=== PATIENT | male | born 1950 | race Caucasian/White ===

== ENCOUNTER 2017-02-28 22:04 | Emergency (ER) | payer OTHER, MEDICARE ==
[~2017-02-28] VITALS: Ht 170.2 cm; Wt 62.7 kg
[2017-02-28 22:07] VITALS: BP 93/54; TEMP 98
[2017-02-28] MEDS ORDERED: PRINIVIL40 MG PO (22:12)
[2017-02-28 23:40] VITALS: PULSE 92
== END 2017-02-28 23:40 | disposition home or self-care (01) ==
LOC: COL.ER 22:04
DX: S00.83XA Contusion of other part of head, initial encounter (principal); S00.81XA Abrasion of other part of head, initial encounter; S51.811A Laceration without foreign body of right forearm, initial encounter; W01.10XA Fall on same level from slipping, tripping and stumbling with subsequent striking against unspecified object, initial encounter; Z72.89 Other problems related to lifestyle; I10 Essential (primary) hypertension; F17.200 Nicotine dependence, unspecified, uncomplicated

== ENCOUNTER 2017-03-20 14:37 | Inpatient (IN) | payer MEDICARE ==
[2017-03-20] VITALS (400 sets, daily range): BP systolic 80–81; BP diastolic 49–61; PULSE 70–115; TEMP 97.2–97.9; O2SAT 88–99
[~2017-03-20] VITALS: Ht 170.2 cm; Wt 61.2 kg
[~2017-03-20 14:37] MED LIST: PRINIVIL40 MG PO
[2017-03-20 15:38] LABS: BASO # 0.1 (0.0-0.2); BASO % 0.9 % (0.0-2.0); GRAN # 4.1 (1.4-6.5); GRAN % 71.6 % (42.2-75.2); LYMPH # 1.4 (1.2-3.4); LYMPH % 24.4 % (20.0-51.0); MEAN CELL VOLUME 94 fl (80.0-100.0); MEAN CORPUSCULAR HGB CONC 34 g/dl (33.0-37.0); MEAN PLATELET VOLUME 9.7 fl (7.4-10.4); MONO # 0.2 (0.1-0.6); MONO % 2.9 % (1.7-9.3); PLATELET COUNT 206 K/mm3 (130-400); RED BLOOD COUNT 3.51 M/mm3 (4.20-5.60); REDCELL DISTRIBUTION WIDTH-CV 13.2 % (11.5-14.5); WHITE BLOOD COUNT 5.8 K/mm3 (4.8-10.8)
[2017-03-20 15:40] LABS: HEMATOCRIT 33.1 % (42.0-52.0); HEMOGLOBIN 11.4 g/dl (13.5-18.0); MEAN CORPUSCULAR HEMOGLOBIN 32 pg (27.0-31.0)
[2017-03-20 15:52] LABS: ADJUSTED CALCIUM 9.2 mg/dL (8.4-10.2); ALBUMIN 4.3 gm/dL (3.5-5.0); BILIRUBIN,TOTAL 0.6 mg/dL (0.0-1.0); CALCIUM 9.4 mg/dL (8.4-10.2); CREATININE, serum 3.5 mg/dL (0.66-1.25); PHOSPHOROUS 6.5 mg/dL (2.5-4.5); POTASSIUM 5.6 mmol/L (3.4-5.0); TOTAL PROTEIN 7.2 gm/dL (6.4-8.2)
[2017-03-20 16:08] LABS: INR 0.8 (0.8-3.0); PROTHROMBIN TIME 9.2 SECONDS (9.7-12.8)
[2017-03-20 16:10] LABS: PARTIAL THROMBOPLASTIN TIME 27.4 SECONDS (26.0-37.0)
[2017-03-20 16:30] LABS: SQUAMOUS EPITHELIAL 0-2 /hpf; URINE BACTERIA Rare /hpf; URINE RBC 0-2 /hpf; URINE WBC 0-2 /hpf
[2017-03-20 16:33] LABS: PH 6 (5-8); URINE APPEARANCE Clear; URINE BILIRUBIN Negative (NEGATIVE); URINE BLOOD Negative (NEGATIVE); URINE COLOR Yellow; URINE GLUCOSE Negative (NEGATIVE); URINE KETONE Negative (NEGATIVE); URINE UROBILINOGEN Negative (NEGATIVE)
[2017-03-20] MEDS ORDERED: PRILOTC (17:41)
[2017-03-20] MEDS ORDERED: ONE DAILY1 TA1 PO (17:41)
[2017-03-20 21:35] LABS: CALCIUM 8.7 mg/dL (8.4-10.2); CREATININE, serum 3.24 mg/dL (0.66-1.25); POTASSIUM 5.7 mmol/L (3.4-5.0)
[2017-03-20 23:11] LABS: CALCIUM 8.4 mg/dL (8.4-10.2); CREATININE, serum 3.05 mg/dL (0.66-1.25); POTASSIUM 5.2 mmol/L (3.4-5.0)
[2017-03-21] VITALS (681 sets, daily range): BP systolic 90–133; BP diastolic 58–103; PULSE 73–135; TEMP 97–99; O2SAT 87–99
[2017-03-21 05:28] LABS: MEAN CELL VOLUME 92 fl (80.0-100.0); MEAN CORPUSCULAR HGB CONC 36 g/dl (33.0-37.0); MEAN PLATELET VOLUME 9.7 fl (7.4-10.4); PLATELET COUNT 135 K/mm3 (130-400); RED BLOOD COUNT 2.85 M/mm3 (4.20-5.60); WHITE BLOOD COUNT 5.7 K/mm3 (4.8-10.8)
[2017-03-21 05:31] LABS: HEMATOCRIT 26.1 % (42.0-52.0); HEMOGLOBIN 9.4 g/dl (13.5-18.0); MEAN CORPUSCULAR HEMOGLOBIN 33 pg (27.0-31.0)
[2017-03-21 05:33] LABS: INR 0.8 (0.8-3.0); PROTHROMBIN TIME 9.3 SECONDS (9.7-12.8)
[2017-03-21 05:43] LABS: ADJUSTED CALCIUM 8.3 mg/dL (8.4-10.2); ALBUMIN 3.2 gm/dL (3.5-5.0); BILIRUBIN,TOTAL 0.7 mg/dL (0.0-1.0); CALCIUM 7.7 mg/dL (8.4-10.2); CREATININE, serum 2.42 mg/dL (0.66-1.25); MAGNESIUM 2.3 mg/dL (1.6-2.3); POTASSIUM 5.3 mmol/L (3.4-5.0); TOTAL PROTEIN 5.7 gm/dL (6.4-8.2)
[2017-03-21 06:04] LABS: BAND 18 % (0-10); METAMYELOCYTE 2 % (0-0); NEUTROPHILS 75 % (42.0-75.2); TOTAL CELLS COUNTED 100
[2017-03-21 06:05] LABS: PLATELET ESTIMATE DECREASED (NORMAL)
[2017-03-21 06:06] LABS: TARGET CELLS 1+
[2017-03-21 06:07] LABS: SPHEROCYTE 2+
[2017-03-21 06:12] LABS: ADD PATHOLOGY DIFF REVIEW YES
[2017-03-21 08:41] LABS: PATHOLOGY DIFF REVIEW OK
[2017-03-22] VITALS (12 sets, daily range): BP systolic 104–133; BP diastolic 63–84; PULSE 64–122; TEMP 96.5–98.4
[2017-03-22 06:30] LABS: BASO % 0.2 % (0.0-2.0); GRAN # 4.9 (1.4-6.5); GRAN % 83.8 % (42.2-75.2); LYMPH # 0.7 (1.2-3.4); LYMPH % 11.6 % (20.0-51.0); MEAN CELL VOLUME 91 fl (80.0-100.0); MEAN CORPUSCULAR HGB CONC 36 g/dl (33.0-37.0); MEAN PLATELET VOLUME 10.7 fl (7.4-10.4); MONO # 0.2 (0.1-0.6); MONO % 3.4 % (1.7-9.3); PLATELET COUNT 109 K/mm3 (130-400); RED BLOOD COUNT 2.92 M/mm3 (4.20-5.60); REDCELL DISTRIBUTION WIDTH-CV 12.9 % (11.5-14.5); WHITE BLOOD COUNT 5.9 K/mm3 (4.8-10.8)
[2017-03-22 06:33] LABS: HEMATOCRIT 26.6 % (42.0-52.0); HEMOGLOBIN 9.5 g/dl (13.5-18.0); MEAN CORPUSCULAR HEMOGLOBIN 33 pg (27.0-31.0)
[2017-03-22 06:45] LABS: ADJUSTED CALCIUM 8.1 mg/dL (8.4-10.2); ALBUMIN 3.3 gm/dL (3.5-5.0); BILIRUBIN,TOTAL 0.7 mg/dL (0.0-1.0); CALCIUM 7.5 mg/dL (8.4-10.2); CREATININE, serum 1.32 mg/dL (0.66-1.25); MAGNESIUM 1.2 mg/dL (1.6-2.3); POTASSIUM 3.7 mmol/L (3.4-5.0)
[2017-03-23] VITALS (12 sets, daily range): BP systolic 85–138; BP diastolic 53–90; PULSE 52–117; TEMP 97.4–99.3
[2017-03-23 07:05] LABS: EOS % 0.3 % (0-4.0); GRAN # 4.5 (1.4-6.5); GRAN % 70.9 % (42.2-75.2); LYMPH # 1.5 (1.2-3.4); LYMPH % 23.8 % (20.0-51.0); MEAN CELL VOLUME 94 fl (80.0-100.0); MEAN CORPUSCULAR HGB CONC 35 g/dl (33.0-37.0); MEAN PLATELET VOLUME 11.2 fl (7.4-10.4); MONO # 0.3 (0.1-0.6); PLATELET COUNT 92 K/mm3 (130-400); RED BLOOD COUNT 3.15 M/mm3 (4.20-5.60); REDCELL DISTRIBUTION WIDTH-CV 13.4 % (11.5-14.5); WHITE BLOOD COUNT 6.3 K/mm3 (4.8-10.8)
[2017-03-23 07:06] LABS: HEMATOCRIT 29.5 % (42.0-52.0); HEMOGLOBIN 10.3 g/dl (13.5-18.0); MEAN CORPUSCULAR HEMOGLOBIN 33 pg (27.0-31.0)
[2017-03-23 07:29] LABS: CALCIUM 7.7 mg/dL (8.4-10.2); CREATININE, serum 0.96 mg/dL (0.66-1.25); MAGNESIUM 1.2 mg/dL (1.6-2.3); POTASSIUM 3.9 mmol/L (3.4-5.0)
[2017-03-24] VITALS (10 sets, daily range): BP systolic 94–149; BP diastolic 50–93; PULSE 71–105; TEMP 97–98.2
[2017-03-24 07:52] LABS: BASO % 0.2 % (0.0-2.0); EOS # 0.1 (0.0-0.7); EOS % 2.2 % (0-4.0); GRAN # 3.6 (1.4-6.5); GRAN % 65.7 % (42.2-75.2); LYMPH # 1.5 (1.2-3.4); LYMPH % 27.5 % (20.0-51.0); MEAN CELL VOLUME 94 fl (80.0-100.0); MEAN CORPUSCULAR HGB CONC 34 g/dl (33.0-37.0); MEAN PLATELET VOLUME 11.7 fl (7.4-10.4); MONO # 0.2 (0.1-0.6); PLATELET COUNT 69 K/mm3 (130-400); RED BLOOD COUNT 2.91 M/mm3 (4.20-5.60); REDCELL DISTRIBUTION WIDTH-CV 13.4 % (11.5-14.5); WHITE BLOOD COUNT 5.5 K/mm3 (4.8-10.8)
[2017-03-24 07:59] LABS: HEMATOCRIT 27.3 % (42.0-52.0); HEMOGLOBIN 9.4 g/dl (13.5-18.0); MEAN CORPUSCULAR HEMOGLOBIN 32 pg (27.0-31.0)
[2017-03-24 08:00] LABS: CALCIUM 7.8 mg/dL (8.4-10.2); CREATININE, serum 0.92 mg/dL (0.66-1.25); MAGNESIUM 1.4 mg/dL (1.6-2.3); POTASSIUM 3.9 mmol/L (3.4-5.0)
[2017-03-25] VITALS (10 sets, daily range): BP systolic 110–141; BP diastolic 70–99; PULSE 63–104; TEMP 97.4–98.6
[2017-03-25 07:03] LABS: BASO % 0.3 % (0.0-2.0); EOS # 0.3 (0.0-0.7); EOS % 4.3 % (0-4.0); GRAN # 3.6 (1.4-6.5); GRAN % 62.1 % (42.2-75.2); LYMPH # 1.6 (1.2-3.4); LYMPH % 26.9 % (20.0-51.0); MEAN CELL VOLUME 93 fl (80.0-100.0); MEAN CORPUSCULAR HGB CONC 35 g/dl (33.0-37.0); MONO # 0.4 (0.1-0.6); MONO % 6.2 % (1.7-9.3); PLATELET COUNT 80 K/mm3 (130-400); RED BLOOD COUNT 2.57 M/mm3 (4.20-5.60); REDCELL DISTRIBUTION WIDTH-CV 13.3 % (11.5-14.5); WHITE BLOOD COUNT 5.8 K/mm3 (4.8-10.8)
[2017-03-25 07:07] LABS: HEMATOCRIT 23.9 % (42.0-52.0); HEMOGLOBIN 8.3 g/dl (13.5-18.0); MEAN CORPUSCULAR HEMOGLOBIN 32 pg (27.0-31.0)
[2017-03-25 07:15] LABS: CALCIUM 8.2 mg/dL (8.4-10.2); CREATININE, serum 0.98 mg/dL (0.66-1.25); MAGNESIUM 1.5 mg/dL (1.6-2.3); POTASSIUM 3.6 mmol/L (3.4-5.0)
[2017-03-25] MEDS ORDERED: NICODERM C21 MG/PATC TD (12:39)
[2017-03-26] VITALS (7 sets, daily range): BP systolic 104–129; BP diastolic 64–93; PULSE 72–102; TEMP 97.6–98.9
[2017-03-26 06:36] LABS: BASO % 0.5 % (0.0-2.0); EOS # 0.3 (0.0-0.7); EOS % 4.7 % (0-4.0); GRAN # 3.1 (1.4-6.5); GRAN % 55.6 % (42.2-75.2); LYMPH # 1.6 (1.2-3.4); LYMPH % 28.8 % (20.0-51.0); MEAN CELL VOLUME 93 fl (80.0-100.0); MEAN CORPUSCULAR HGB CONC 35 g/dl (33.0-37.0); MEAN PLATELET VOLUME 10.9 fl (7.4-10.4); MONO # 0.6 (0.1-0.6); PLATELET COUNT 123 K/mm3 (130-400); RED BLOOD COUNT 2.63 M/mm3 (4.20-5.60); REDCELL DISTRIBUTION WIDTH-CV 13.7 % (11.5-14.5); WHITE BLOOD COUNT 5.5 K/mm3 (4.8-10.8)
[2017-03-26 06:40] LABS: HEMATOCRIT 24.4 % (42.0-52.0); HEMOGLOBIN 8.5 g/dl (13.5-18.0); MEAN CORPUSCULAR HEMOGLOBIN 32 pg (27.0-31.0)
[2017-03-26 06:48] LABS: CALCIUM 8.9 mg/dL (8.4-10.2); CREATININE, serum 0.98 mg/dL (0.66-1.25); POTASSIUM 3.6 mmol/L (3.4-5.0)
[2017-03-26 06:55] LABS: MAGNESIUM 0.8 mg/dL (1.6-2.3)
[2017-03-26 09:40] LABS: RETIC % 1.6 % (0.5-3.52)
[2017-03-26 10:03] LABS: TOTAL IRON BINDING CAPACITY 254 ug/dL (261-462)
[2017-03-27 06:22] VITALS: BP 109/77; PULSE 90; TEMP 98.2
[2017-03-27 08:02] LABS: CALCIUM 9.5 mg/dL (8.4-10.2); CREATININE, serum 1.09 mg/dL (0.66-1.25); MAGNESIUM 1.2 mg/dL (1.6-2.3); POTASSIUM 3.9 mmol/L (3.4-5.0)
[2017-03-27 12:04] VITALS: BP 102/80; PULSE 94; TEMP 98.5
[2017-03-27 17:04] VITALS: BP 111/73; PULSE 94; TEMP 99.1
[2017-03-27 21:41] VITALS: BP 115/77; PULSE 81; TEMP 98.3
[2017-03-28 01:04] VITALS: BP 119/87; PULSE 85; TEMP 98.6
[2017-03-28 02:38] VITALS: BP 98/58; PULSE 85; TEMP 98.2
[2017-03-28 07:24] VITALS: BP 117/81; PULSE 87; TEMP 97.9
[2017-03-28] MEDS ORDERED: FOLIC ACID 11 MG/TA1 PO (08:37)
[2017-03-28] MEDS ORDERED: MAG-OX 400400 MG/TAB PO (08:37)
[2017-03-28] MEDS ORDERED: THIAMINE 1100 MG/TAB PO (08:37)
[2017-03-28] MEDS ORDERED: RT ALBUTER2.5 MG/0.5 IH (08:38)
[2017-03-28] MEDS ORDERED: NORVASC 5MG5 MG/TAB PO (09:25)
[2017-03-28 09:46] LABS: CALCIUM 9.5 mg/dL (8.4-10.2); CREATININE, serum 1.15 mg/dL (0.66-1.25); MAGNESIUM 1.5 mg/dL (1.6-2.3); POTASSIUM 4.7 mmol/L (3.4-5.0)
[2017-03-28 10:04] VITALS: BP 117/81; PULSE 87; TEMP 97.9
[2017-03-28 11:25] VITALS: BP 110/75; PULSE 85; TEMP 98.1
== END 2017-03-28 15:54 | DRG 682 ==
LOC: COL.ER 14:37 → ICU 17:05 → MEDICAL 03-21 11:40
PROVIDERS: Emergency Medicine; Family Medicine; Internal Medicine; Nurse Practitioner Family; Physician Assistant
DX: N17.9 Acute kidney failure, unspecified (principal); E43 Unspecified severe protein-calorie malnutrition; F10.231 Alcohol dependence with withdrawal delirium; E87.2 Acidosis; F33.1 Major depressive disorder, recurrent, moderate; F10.229 Alcohol dependence with intoxication, unspecified; Y90.8 Blood alcohol level of 240 mg/100 ml or more; I10 Essential (primary) hypertension; F17.210 Nicotine dependence, cigarettes, uncomplicated; E87.5 Hyperkalemia; F43.12 Post-traumatic stress disorder, chronic; D69.6 Thrombocytopenia, unspecified; E83.42 Hypomagnesemia
CPT/HCPCS: 99223-AI; 99232-AI; 99233-AI; 99239; A4315; C9113; J1644; J2060; J2405; J2930; J3360; J3411; J3475; J7030; J7070

== ENCOUNTER → 2017-04-01 | Outpatient (REF) ==
[~2017-04-01] MED LIST changes: +FOLIC ACID 11 MG/TA1 PO; +KEPPRA 500MG500 MG PO; +MAG-OX 400400 MG/TAB PO; +NICODERM C21 MG/PATC TD; +NORVASC 5MG5 MG/TAB PO; +ONE DAILY1 TA1 PO; +PRILOTC; +RT ALBUTER2.5 MG/0.5 IH; +THIAMINE 1100 MG/TAB PO; +ZESTRIL40 MG PO
[2017-04-01 15:30] LABS: BASO # 0.1 (0.0-0.2); BASO % 0.9 % (0.0-2.0); EOS # 0.1 (0.0-0.7); EOS % 1.1 % (0-4.0); GRAN # 6.5 (1.4-6.5); GRAN % 72.5 % (42.2-75.2); LYMPH # 1.5 (1.2-3.4); LYMPH % 16.7 % (20.0-51.0); MEAN CELL VOLUME 98 fl (80.0-100.0); MEAN CORPUSCULAR HGB CONC 34 g/dl (33.0-37.0); MEAN PLATELET VOLUME 9.9 fl (7.4-10.4); MONO # 0.8 (0.1-0.6); MONO % 8.6 % (1.7-9.3); PLATELET COUNT 359 K/mm3 (130-400); RED BLOOD COUNT 2.63 M/mm3 (4.20-5.60); REDCELL DISTRIBUTION WIDTH-CV 14.6 % (11.5-14.5)
[2017-04-01 15:31] LABS: HEMATOCRIT 25.8 % (42.0-52.0); HEMOGLOBIN 8.7 g/dl (13.5-18.0); MEAN CORPUSCULAR HEMOGLOBIN 33 pg (27.0-31.0)
[2017-04-01 15:32] LABS: INR 1.1 (0.8-3.0); PROTHROMBIN TIME 11.9 SECONDS (9.7-12.8)
[2017-04-01 15:55] LABS: ALBUMIN 3.8 gm/dL (3.5-5.0); BILIRUBIN,TOTAL 0.7 mg/dL (0.0-1.0); CALCIUM 9.8 mg/dL (8.4-10.2); CREATININE, serum 1.41 mg/dL (0.66-1.25); POTASSIUM 5.3 mmol/L (3.4-5.0); TOTAL PROTEIN 6.8 gm/dL (6.4-8.2)
[2017-04-01 16:12] LABS: MAGNESIUM 0.9 mg/dL (1.6-2.3)
== END ==
LOC: ZLAB.STJ 15:25
PROVIDERS: Internal Medicine
DX: Z02.89 Encounter for other administrative examinations (principal)

== ENCOUNTER 2017-04-20 12:59 | Emergency (ER) | payer MEDICARE ==
[~2017-04-20] VITALS: Ht 167.6 cm; Wt 61.4 kg
[~2017-04-20 12:59] MED LIST changes: -KEPPRA 500MG500 MG PO; -ZESTRIL40 MG PO
[2017-04-20 13:06] VITALS: TEMP 96.8
[2017-04-20] MEDS ORDERED: ZESTRIL40 MG PO (13:32)
[2017-04-20 13:54] LABS: BASO % 0.3 % (0.0-2.0); EOS # 0.1 (0.0-0.7); EOS % 0.9 % (0-4.0); GRAN # 4.9 (1.4-6.5); GRAN % 73.3 % (42.2-75.2); LYMPH # 1.2 (1.2-3.4); LYMPH % 17.8 % (20.0-51.0); MEAN CELL VOLUME 94 fl (80.0-100.0); MEAN CORPUSCULAR HGB CONC 34 g/dl (33.0-37.0); MEAN PLATELET VOLUME 10.3 fl (7.4-10.4); MONO # 0.5 (0.1-0.6); MONO % 7.2 % (1.7-9.3); PLATELET COUNT 207 K/mm3 (130-400); WHITE BLOOD COUNT 6.6 K/mm3 (4.8-10.8)
[2017-04-20 13:56] LABS: HEMATOCRIT 25.5 % (42.0-52.0); HEMOGLOBIN 8.7 g/dl (13.5-18.0); MEAN CORPUSCULAR HEMOGLOBIN 32 pg (27.0-31.0)
[2017-04-20 14:01] LABS: PROTHROMBIN TIME 10.8 SECONDS (9.7-12.8)
[2017-04-20 14:08] LABS: ADJUSTED CALCIUM 8.3 mg/dL (8.4-10.2); ALANINE AMINOTRANSFERASE 29 U/L (21-72); ALBUMIN 3.7 gm/dL (3.5-5.0); ALKALINE PHOSPHATASE 68 U/L (50-136); ANION GAP 14 mmol/L (7-16); BILIRUBIN,TOTAL 0.4 mg/dL (0.0-1.0); BLOOD UREA NITROGEN 40 mg/dL (9-20); CALCIUM 8.1 mg/dL (8.4-10.2); CARBON DIOXIDE 19 mmol/L (22-30); CHLORIDE 95 mmol/L (98-107); CREATININE, serum 2.92 mg/dL (0.66-1.25); GLUCOSE 117 mg/dL (74-106); PHOSPHOROUS 4.1 mg/dL (2.5-4.5); POTASSIUM 4.5 mmol/L (3.4-5.0); SODIUM 128 mmol/L (137-145); TOTAL PROTEIN 6.1 gm/dL (6.4-8.2)
[2017-04-20 14:22] LABS: MAGNESIUM 0.8 mg/dL (1.6-2.3); TROPONIN-I < 0.012 ng/mL (0.000-0.034)
[2017-04-20 14:24] LABS: PROLACTIN 47.3 ng/mL (3.7-17.9)
[2017-04-20] MEDS ORDERED: KEPPRA 500MG500 MG PO (15:42)
[2017-04-20 16:00] LABS: CALCIUM 7.5 mg/dL (8.4-10.2); CREATININE, serum 2.56 mg/dL (0.66-1.25); MAGNESIUM 1.7 mg/dL (1.6-2.3); POTASSIUM 4.6 mmol/L (3.4-5.0)
[2017-04-20 17:34] VITALS: BP 115/67; PULSE 90
== END 2017-04-20 17:21 | disposition home or self-care (01) ==
LOC: COL.ER 12:59
PROVIDERS: Emergency Medicine
DX: S02.621A Fracture of subcondylar process of right mandible, initial encounter for closed fracture (principal); F10.129 Alcohol abuse with intoxication, unspecified; N19 Unspecified kidney failure; E83.42 Hypomagnesemia; I10 Essential (primary) hypertension; F17.210 Nicotine dependence, cigarettes, uncomplicated; Y90.6 Blood alcohol level of 120-199 mg/100 ml; X58.XXXA Exposure to other specified factors, initial encounter
CPT/HCPCS: J1953; J2270; J2405; J3411; J3475; J7030

== ENCOUNTER 2017-05-24 18:33 | Emergency (ER) | payer OTHER ==
[~2017-05-24] VITALS: Ht 167.6 cm; Wt 59.1 kg
[~2017-05-24 18:33] MED LIST changes: +KEPPRA 500MG500 MG PO; +ZESTRIL40 MG PO
[2017-05-24 19:20] LABS: ARTERIAL BLD GAS O2 SATURATION 95.8 % (92-100); ARTERIAL BLD GAS TCO2 CT 13.4; ARTERIAL BLOOD GAS BASE EXCESS -12.3 (-2-2); ARTERIAL BLOOD GAS HCO3 12.7 meq/L (22-26); ARTERIAL BLOOD GAS PO2 99.2 mmHg (80-100); ARTERIAL BLOOD GAS pH 7.33 (7.35-7.45); OXYHEMOGLOBIN 93.5 %
[2017-05-24 19:21] LABS: ALLEN TEST YES; ALLENS TEST RESULT PASS; ATS? YES
[2017-05-24 20:12] LABS: ADJUSTED CALCIUM 10.2 mg/dL (8.4-10.2); ALANINE AMINOTRANSFERASE 23 U/L (21-72); ALBUMIN 2.9 gm/dL (3.5-5.0); ALKALINE PHOSPHATASE 68 U/L (50-136); ANION GAP 14 mmol/L (7-16); BILIRUBIN,TOTAL 0.2 mg/dL (0.0-1.0); CALCIUM 9.3 mg/dL (8.4-10.2); CHLORIDE 104 mmol/L (98-107); GLUCOSE 103 mg/dL (74-106); POTASSIUM 5.1 mmol/L (3.4-5.0); SODIUM 130 mmol/L (137-145); TOTAL PROTEIN 5.4 gm/dL (6.4-8.2)
[2017-05-24 20:19] LABS: ALCOHOL(ethanol),MEDICAL < 10 mg/dL; BLOOD UREA NITROGEN 143 mg/dL (9-20)
[2017-05-24 20:21] LABS: CARBON DIOXIDE 12 mmol/L (22-30); CREATININE, serum 4.21 mg/dL (0.66-1.25)
[2017-05-24 21:01] LABS: COLLECTION METHOD CLEAN CATCH
[2017-05-24 21:14] LABS: MUCOUS Present /lpf; PH 5 (5-8); SQUAMOUS EPITHELIAL 0-2 /hpf; URINE APPEARANCE Hazy; URINE BACTERIA None Seen /hpf; URINE BILIRUBIN Negative (NEGATIVE); URINE BLOOD 2+ (NEGATIVE); URINE COLOR Yellow; URINE GLUCOSE Negative (NEGATIVE); URINE KETONE Trace (NEGATIVE); URINE LEUKOCYTE ESTERASE Negative (NEGATIVE); URINE PROTEIN(semi-quant) Negative (NEGATIVE); URINE RBC 0-2 /hpf; URINE UROBILINOGEN Negative (NEGATIVE); URINE WBC 0-2 /hpf
[2017-05-24 21:16] LABS: CALCIUM 8.6 mg/dL (8.4-10.2); CREATININE, serum 3.86 mg/dL (0.66-1.25); POTASSIUM 4.8 mmol/L (3.4-5.0)
[2017-05-24 21:18] LABS: AMPHETAMINE URINE NEGATIVE; BARBITURATES URINE NEGATIVE; BENZODIAZEPINES URINE NEGATIVE; BUPRENORPHINE URINE NEGATIVE; METHADONE URINE NEGATIVE; OPIATES URINE NEGATIVE; OXYCODONE URINE NEGATIVE; PHENCYCLIDINE URINE NEGATIVE; PROPOXYPHENE URINE NEGATIVE; THC CANNABINOIDS URINE NEGATIVE; TRICYCLIC ANTIDEPRESS URINE NEGATIVE
[2017-05-24 21:20] LABS: MEAN CELL VOLUME 99 fl (80.0-100.0); MEAN CORPUSCULAR HGB CONC 34 g/dl (33.0-37.0); MEAN PLATELET VOLUME 10.2 fl (7.4-10.4); PLATELET COUNT 242 K/mm3 (130-400); RED BLOOD COUNT 1.33 M/mm3 (4.20-5.60); WHITE BLOOD COUNT 9.3 K/mm3 (4.8-10.8)
[2017-05-24 21:21] LABS: ADD PATHOLOGY DIFF REVIEW NO; HEMATOCRIT 13.1 % (42.0-52.0); HEMOGLOBIN 4.5 g/dl (13.5-18.0); MEAN CORPUSCULAR HEMOGLOBIN 34 pg (27.0-31.0)
[2017-05-24 21:30] LABS: MAGNESIUM 1.4 mg/dL (1.6-2.3); PHOSPHOROUS 4.6 mg/dL (2.5-4.5)
[2017-05-24 22:06] LABS: BAND 1 % (0-10); LYMPHOCYTE 2 % (20.0-51.0); METAMYELOCYTE 1 % (0-0); NEUTROPHILS 96 % (42.0-75.2); PLATELET ESTIMATE NORMAL (NORMAL); TOTAL CELLS COUNTED 100
[2017-05-24 22:07] LABS: ROULEAUX 1+
[2017-05-24 23:05] VITALS: BP 78/46; PULSE 104; TEMP 97.9
[2017-05-24 23:19] LABS: TROPONIN-I 0.019 ng/mL (0.000-0.034)
== END 2017-05-24 23:33 | disposition short-term general hospital (02) ==
LOC: COL.ER 18:33
PROVIDERS: Emergency Medicine; Family Medicine; Nurse Practitioner Family
DX: A41.9 Sepsis, unspecified organism (principal); R41.0 Disorientation, unspecified; F03.90 Unspecified dementia, unspecified severity, without behavioral disturbance, psychotic disturbance, mood disturbance, and anxiety; J44.9 Chronic obstructive pulmonary disease, unspecified; F17.210 Nicotine dependence, cigarettes, uncomplicated; V89.2XXA Person injured in unspecified motor-vehicle accident, traffic, initial encounter; Y92.481 Parking lot as the place of occurrence of the external cause
CPT/HCPCS: J0692; J3370; J7030; J7050; P9016

== ENCOUNTER 2017-06-03 14:27 | Inpatient (IN) | payer MEDICARE ==
[~2017-06-03] VITALS: Ht 167.6 cm; Wt 55.0 kg
[~2017-06-03 14:27] MED LIST changes: +ZESTRIL 5MG5 MG PO; -ZESTRIL40 MG PO
[2017-06-03 15:24] VITALS: BP 94/59; PULSE 94; TEMP 98.1
[2017-06-03] MEDS ORDERED: KEPPRA 500MG500 MG PO (19:20)
[2017-06-03] MEDS ORDERED: PRILOSEC 20MG20 MG PO (19:21)
[2017-06-03] MEDS ORDERED: HCTZ12.5TAB PO (19:22)
[2017-06-04 04:48] VITALS: BP 94/65; PULSE 69; TEMP 97
[2017-06-04 06:59] LABS: BASO # 0.1 (0.0-0.2); BASO % 1.5 % (0.0-2.0); EOS # 0.2 (0.0-0.7); EOS % 3.4 % (0-4.0); GRAN # 2.9 (1.4-6.5); GRAN % 54.4 % (42.2-75.2); LYMPH # 1.8 (1.2-3.4); LYMPH % 33.8 % (20.0-51.0); MEAN CELL VOLUME 95 fl (80.0-100.0); MEAN CORPUSCULAR HGB CONC 32 g/dl (33.0-37.0); MEAN PLATELET VOLUME 10.3 fl (7.4-10.4); MONO # 0.4 (0.1-0.6); MONO % 6.7 % (1.7-9.3); PLATELET COUNT 231 K/mm3 (130-400); WHITE BLOOD COUNT 5.3 K/mm3 (4.8-10.8)
[2017-06-04 07:03] LABS: HEMATOCRIT 24.8 % (42.0-52.0); HEMOGLOBIN 7.9 g/dl (13.5-18.0); MEAN CORPUSCULAR HEMOGLOBIN 30 pg (27.0-31.0)
[2017-06-04 07:36] LABS: CALCIUM 8.5 mg/dL (8.4-10.2); CREATININE, serum 1.11 mg/dL (0.66-1.25); MAGNESIUM 1.1 mg/dL (1.6-2.3); POTASSIUM 3.8 mmol/L (3.4-5.0)
[2017-06-04 15:57] VITALS: BP 107/71; PULSE 78; TEMP 97.8
[2017-06-05 05:38] VITALS: BP 99/70; PULSE 80; TEMP 97.5
[2017-06-05 15:45] VITALS: BP 87/50; PULSE 67; TEMP 97.9
[2017-06-06 04:49] VITALS: BP 89/69; PULSE 85; TEMP 98.6
[2017-06-06 05:54] LABS: HEMATOCRIT 25.4 % (42.0-52.0)
[2017-06-06 16:40] VITALS: BP 97/63; PULSE 78; TEMP 98.5
[2017-06-07 05:14] VITALS: BP 92/65; PULSE 73; TEMP 98.2
[2017-06-07 16:14] VITALS: BP 83/57; PULSE 87; TEMP 98.1
[2017-06-07 16:20] VITALS: BP 87/55
[2017-06-08 04:07] VITALS: BP 106/72; PULSE 71; TEMP 97.7
[2017-06-08 08:33] LABS: CALCIUM 8.9 mg/dL (8.4-10.2); CREATININE, serum 1.06 mg/dL (0.66-1.25); MAGNESIUM 1.1 mg/dL (1.6-2.3); POTASSIUM 4.2 mmol/L (3.4-5.0)
[2017-06-08 18:06] VITALS: BP 92/62; PULSE 81; TEMP 98.2
[2017-06-09 05:45] VITALS: BP 102/64; PULSE 80; TEMP 97.9
[2017-06-09] MEDS ORDERED: FERROUS SU325 MG/TAB PO (14:25)
[2017-06-09] MEDS ORDERED: MAG-OX 400400 MG/TAB PO (14:26)
[2017-06-09] MEDS ORDERED: KEPPRA 500MG500 MG PO (14:26)
[2017-06-09] MEDS ORDERED: FOLIC ACID 11 MG/TA1 PO (14:26)
[2017-06-09] MEDS ORDERED: THIAMINE 1100 MG/TAB PO (14:27)
[2017-06-09] MEDS ORDERED: PRILOSEC 20MG20 MG PO (14:28)
== END 2017-06-09 17:55 | disposition home or self-care (01) | DRG 91 ==
PROVIDERS: Internal Medicine
DX: G72.81 Critical illness myopathy (principal); R57.8 Other shock; K26.4 Chronic or unspecified duodenal ulcer with hemorrhage; E87.2 Acidosis; N17.9 Acute kidney failure, unspecified; E46 Unspecified protein-calorie malnutrition; E87.1 Hypo-osmolality and hyponatremia; Z68.1 Body mass index [BMI] 19.9 or less, adult; I10 Essential (primary) hypertension; F10.10 Alcohol abuse, uncomplicated; E83.42 Hypomagnesemia
CPT/HCPCS: 99222-AI; 99232-AI; 99239

== ENCOUNTER 2018-01-30 15:36 | Emergency (ER) | payer OTHER ==
[~2018-01-30] VITALS: Ht 167.6 cm; Wt 61.4 kg
[~2018-01-30 15:36] MED LIST changes: +FERROUS SU325 MG/TAB PO; +HCTZ12.5TAB PO; +PRILOSEC 20MG20 MG PO
[2018-01-30 15:38] VITALS: TEMP 98.1
[2018-01-30 16:07] LABS: BASO % 0.1 % (0.0-2.0); EOS # 0.1 (0.0-0.7); EOS % 0.8 % (0-4.0); GRAN % 55.8 % (42.2-75.2); LYMPH # 2.4 (1.2-3.4); LYMPH % 33.7 % (20.0-51.0); MEAN CELL VOLUME 85 fl (80.0-100.0); MEAN CORPUSCULAR HEMOGLOBIN 32 pg (27.0-31.0); MEAN CORPUSCULAR HGB CONC 37 g/dl (33.0-37.0); MONO # 0.7 (0.1-0.6); MONO % 9.3 % (1.7-9.3); PLATELET COUNT 217 K/mm3 (130-400); RED BLOOD COUNT 3.14 M/mm3 (4.20-5.60); REDCELL DISTRIBUTION WIDTH-CV 13.2 % (11.5-14.5)
[2018-01-30 16:15] LABS: HEMATOCRIT 26.8 % (42.0-52.0)
[2018-01-30 16:25] LABS: ALKALINE PHOSPHATASE 95 U/L (50-136); AST,SGOT 41 U/L (15-37); BILIRUBIN,TOTAL 0.3 mg/dL (0.0-1.0); BLOOD UREA NITROGEN 49 mg/dL (9-20); C-REACTIVE PROTEIN 0.7 mg/dL (0.0-0.9); CARBON DIOXIDE 24 mmol/L (22-30); CREATININE, serum 2.03 mg/dL (0.66-1.25); GLUCOSE 124 mg/dL (74-106); TOTAL PROTEIN 6.7 gm/dL (6.4-8.2)
[2018-01-30 16:31] LABS: CHLORIDE 71 mmol/L (98-107)
[2018-01-30 16:36] LABS: TROPONIN-I < 0.012 ng/mL (0.000-0.034)
[2018-01-30 16:39] LABS: PROLACTIN 28.4 ng/mL (3.7-17.9)
[2018-01-30 16:41] LABS: ALANINE AMINOTRANSFERASE 30 U/L (21-72); ALCOHOL(ethanol),MEDICAL 135 mg/dL; CALCIUM 8.7 mg/dL (8.4-10.2); CREATINE KINASE 229 U/L (55-170); LIPASE 153 U/L (23-300); MAGNESIUM 2.2 mg/dL (1.6-2.3); PHOSPHOROUS 2.7 mg/dL (2.5-4.5); POTASSIUM 3.8 mmol/L (3.4-5.0)
[2018-01-30 16:42] LABS: ANION GAP 16 mmol/L (7-16)
[2018-01-30 16:43] LABS: SODIUM 111 mmol/L (137-145)
[2018-01-30 16:52] LABS: COLLECTION METHOD CLEAN CATCH
[2018-01-30 16:59] LABS: PH 6 (5-8); SQUAMOUS EPITHELIAL None Seen /hpf; URINE APPEARANCE Clear; URINE BACTERIA None Seen /hpf; URINE BILIRUBIN Negative (NEGATIVE); URINE BLOOD Negative (NEGATIVE); URINE COLOR Yellow; URINE GLUCOSE Negative (NEGATIVE); URINE KETONE Negative (NEGATIVE); URINE LEUKOCYTE ESTERASE Negative (NEGATIVE); URINE NITRATE Negative (NEGATIVE); URINE PROTEIN(semi-quant) Negative (NEGATIVE); URINE RBC 0-2 /hpf; URINE UROBILINOGEN Negative (NEGATIVE)
[2018-01-30] MEDS ORDERED: MULTIPLE VITAMI1 CAP PO (17:15)
[2018-01-30] MEDS ORDERED: PRINIVIL40 MG PO (17:16)
[2018-01-30] MEDS ORDERED: ULTRAM 50MG TAB50 MG PO (17:16)
[2018-01-30 17:21] LABS: BASO % 0.3 % (0.0-2.0); EOS % 0.5 % (0-4.0); GRAN # 4.2 (1.4-6.5); GRAN % 69.2 % (42.2-75.2); LYMPH # 1.1 (1.2-3.4); MEAN CELL VOLUME 87 fl (80.0-100.0); MEAN CORPUSCULAR HGB CONC 36 g/dl (33.0-37.0); MEAN PLATELET VOLUME 9.2 fl (7.4-10.4); MONO # 0.7 (0.1-0.6); MONO % 11.7 % (1.7-9.3); PLATELET COUNT 161 K/mm3 (130-400); RED BLOOD COUNT 2.69 M/mm3 (4.20-5.60); REDCELL DISTRIBUTION WIDTH-CV 13.2 % (11.5-14.5)
[2018-01-30 17:22] LABS: HEMATOCRIT 23.5 % (42.0-52.0); HEMOGLOBIN 8.4 g/dl (13.5-18.0); MEAN CORPUSCULAR HEMOGLOBIN 31 pg (27.0-31.0)
[2018-01-30 17:36] LABS: CALCIUM 7.6 mg/dL (8.4-10.2); CREATININE, serum 1.8 mg/dL (0.66-1.25); POTASSIUM 3.9 mmol/L (3.4-5.0)
[2018-01-30 19:00] VITALS: BP 91/64; PULSE 64
== END 2018-01-30 19:14 | disposition short-term general hospital (02) ==
LOC: COL.ER 15:36
PROVIDERS: Emergency Medicine
DX: N19 Unspecified kidney failure (principal); R55 Syncope and collapse; I10 Essential (primary) hypertension; D64.9 Anemia, unspecified; E87.1 Hypo-osmolality and hyponatremia; I95.9 Hypotension, unspecified; F17.210 Nicotine dependence, cigarettes, uncomplicated; F10.10 Alcohol abuse, uncomplicated
CPT/HCPCS: J2060; J7030

== ENCOUNTER 2018-02-10 10:09 | Day surgery (SDC) | payer OTHER ==
[~2018-02-10] VITALS: Ht 167.6 cm; Wt 52.7 kg
[~2018-02-10 10:09] MED LIST changes: +MULTIPLE VITAMI1 CAP PO; +ULTRAM 50MG TAB50 MG PO
[2018-02-10 11:45] LABS: COLLECTION METHOD CLEAN CATCH
[2018-02-10 11:55] LABS: BASO # 0.1 (0.0-0.2); BASO % 1.4 % (0.0-2.0); EOS % 0.3 % (0-4.0); GRAN # 4.3 (1.4-6.5); GRAN % 59.7 % (42.2-75.2); HEMOGLOBIN 10.3 g/dl (13.5-18.0); LYMPH # 2.2 (1.2-3.4); MEAN CELL VOLUME 94 fl (80.0-100.0); MEAN CORPUSCULAR HEMOGLOBIN 32 pg (27.0-31.0); MEAN CORPUSCULAR HGB CONC 34 g/dl (33.0-37.0); MEAN PLATELET VOLUME 8.4 fl (7.4-10.4); MONO # 0.5 (0.1-0.6); MONO % 7.3 % (1.7-9.3); PLATELET COUNT 421 K/mm3 (130-400); RED BLOOD COUNT 3.25 M/mm3 (4.20-5.60); REDCELL DISTRIBUTION WIDTH-CV 15.6 % (11.5-14.5)
[2018-02-10 11:56] LABS: MUCOUS Present /lpf; PH 5 (5-8); SQUAMOUS EPITHELIAL None Seen /hpf; URINE APPEARANCE Clear; URINE BACTERIA Rare /hpf; URINE BILIRUBIN Negative (NEGATIVE); URINE BLOOD Negative (NEGATIVE); URINE COLOR Yellow; URINE GLUCOSE Negative (NEGATIVE); URINE KETONE Negative (NEGATIVE); URINE LEUKOCYTE ESTERASE Negative (NEGATIVE); URINE NITRATE Negative (NEGATIVE); URINE PROTEIN(semi-quant) Negative (NEGATIVE); URINE RBC 0-2 /hpf; URINE UROBILINOGEN Negative (NEGATIVE)
[2018-02-10 11:56] LABS: HEMATOCRIT 30.6 % (42.0-52.0)
[2018-02-10 11:57] LABS: INR 0.9 (0.8-3.0); PROTHROMBIN TIME 10.1 SECONDS (9.7-12.8)
[2018-02-10 12:00] LABS: PARTIAL THROMBOPLASTIN TIME 33.7 SECONDS (26.0-37.0)
[2018-02-10 12:16] LABS: ALBUMIN 4.6 gm/dL (3.5-5.0); BILIRUBIN,TOTAL 0.6 mg/dL (0.0-1.0); CALCIUM 9.8 mg/dL (8.4-10.2); CREATININE, serum 1.43 mg/dL (0.66-1.25); POTASSIUM 4.5 mmol/L (3.4-5.0); TOTAL PROTEIN 7.7 gm/dL (6.4-8.2)
[2018-02-10 18:00] VITALS: BP 141/74; PULSE 66; TEMP 98.5
[2018-02-10 18:15] VITALS: BP 121/84; PULSE 64
[2018-02-10 18:21] VITALS: TEMP 97.7
[2018-02-10 18:30] VITALS: BP 127/82; PULSE 62
[2018-02-10 19:15] VITALS: BP 131/87; PULSE 96
[2018-02-10 19:45] VITALS: BP 140/75; PULSE 63
== END 2018-02-10 20:30 | disposition home or self-care (01) ==
LOC: COL.ER 10:09 → EDBEDREQ 18:16 → SDCO 18:21 → SURG 19:14 → SDCO 20:30
PROVIDERS: Physician Assistant
DX: S31.020A Laceration with foreign body of lower back and pelvis without penetration into retroperitoneum, initial encounter (principal); W45.8XXA Other foreign body or object entering through skin, initial encounter; F10.129 Alcohol abuse with intoxication, unspecified; Y90.8 Blood alcohol level of 240 mg/100 ml or more; I10 Essential (primary) hypertension; F17.210 Nicotine dependence, cigarettes, uncomplicated
CPT/HCPCS: OP; J0690; J2060; J2250; J2704; J3010

== ENCOUNTER 2018-03-26 22:43 | Inpatient (IN) | payer MEDICARE ==
[~2018-03-26] VITALS: Ht 167.6 cm; Wt 49.8 kg
[2018-03-26 23:09] LABS: BASO % 0.6 % (0.0-2.0); GRAN # 2.9 (1.4-6.5); GRAN % 79.7 % (42.2-75.2); LYMPH # 0.3 (1.2-3.4); LYMPH % 7.2 % (20.0-51.0); MEAN CELL VOLUME 99 fl (80.0-100.0); MEAN CORPUSCULAR HGB CONC 34 g/dl (33.0-37.0); MONO # 0.4 (0.1-0.6); MONO % 12.2 % (1.7-9.3); PLATELET COUNT 244 K/mm3 (130-400); RED BLOOD COUNT 2.67 M/mm3 (4.20-5.60); REDCELL DISTRIBUTION WIDTH-CV 16.4 % (11.5-14.5)
[2018-03-26 23:10] LABS: HEMATOCRIT 26.3 % (42.0-52.0); HEMOGLOBIN 8.8 g/dl (13.5-18.0); MEAN CORPUSCULAR HEMOGLOBIN 33 pg (27.0-31.0)
[2018-03-26 23:15] LABS: INR 0.9 (0.8-3.0); PROTHROMBIN TIME 9.9 SECONDS (9.7-12.8)
[2018-03-26 23:17] LABS: PARTIAL THROMBOPLASTIN TIME 26.2 SECONDS (26.0-37.0)
[2018-03-26 23:20] LABS: ALBUMIN 3.2 gm/dL (3.5-5.0); BILIRUBIN,TOTAL 0.2 mg/dL (0.0-1.0); CREATININE, serum 1.57 mg/dL (0.66-1.25); POTASSIUM 4.3 mmol/L (3.4-5.0); TOTAL PROTEIN 5.7 gm/dL (6.4-8.2)
[2018-03-26 23:31] LABS: TROPONIN-I 0.02 ng/mL (0.000-0.034)
[2018-03-27] VITALS (64 sets, daily range): BP systolic 96–142; BP diastolic 57–87; PULSE 70–124; TEMP 97.1–99.1; O2SAT 82–100
[2018-03-27 00:39] LABS: COLLECTION METHOD CLEAN CATCH
[2018-03-27 00:47] LABS: MUCOUS Present /lpf; PH 5 (5-8); SQUAMOUS EPITHELIAL None Seen /hpf; URINE APPEARANCE Clear; URINE BACTERIA Rare /hpf; URINE BILIRUBIN Negative (NEGATIVE); URINE BLOOD 1+ (NEGATIVE); URINE COLOR Yellow; URINE GLUCOSE Negative (NEGATIVE); URINE KETONE 1+ (NEGATIVE); URINE LEUKOCYTE ESTERASE Negative (NEGATIVE); URINE NITRATE Negative (NEGATIVE); URINE PROTEIN(semi-quant) Negative (NEGATIVE); URINE RBC 0-2 /hpf; URINE UROBILINOGEN Negative (NEGATIVE)
[2018-03-27 04:11] LABS: TRICYCLIC ANTIDEPRESS URINE NEGATIVE
[2018-03-27 07:29] LABS: BASO % 0.8 % (0.0-2.0); GRAN # 1.5 (1.4-6.5); LYMPH # 0.5 (1.2-3.4); LYMPH % 19.4 % (20.0-51.0); MEAN CELL VOLUME 98 fl (80.0-100.0); MEAN CORPUSCULAR HGB CONC 34 g/dl (33.0-37.0); MEAN PLATELET VOLUME 9.2 fl (7.4-10.4); MONO # 0.4 (0.1-0.6); MONO % 17.8 % (1.7-9.3); PLATELET COUNT 194 K/mm3 (130-400); REDCELL DISTRIBUTION WIDTH-CV 16.5 % (11.5-14.5)
[2018-03-27 07:31] LABS: HEMATOCRIT 21.6 % (42.0-52.0); HEMOGLOBIN 7.3 g/dl (13.5-18.0); MEAN CORPUSCULAR HEMOGLOBIN 33 pg (27.0-31.0)
[2018-03-27 10:34] LABS: ALBUMIN 2.7 gm/dL (3.5-5.0); BILIRUBIN,TOTAL 0.1 mg/dL (0.0-1.0); CALCIUM 7.7 mg/dL (8.4-10.2); CREATININE, serum 1.27 mg/dL (0.66-1.25); POTASSIUM 4.6 mmol/L (3.4-5.0)
[2018-03-27 15:26] LABS: HEMATOCRIT 21.2 % (42.0-52.0)
[2018-03-27 23:10] LABS: HEMATOCRIT 17.8 % (42.0-52.0)
[2018-03-27 23:11] LABS: HEMOGLOBIN 6.4 g/dl (13.5-18.0)
[2018-03-28] VITALS (16 sets, daily range): BP systolic 102–132; BP diastolic 70–91; PULSE 73–103; TEMP 97.9–98.4
[2018-03-28 03:37] LABS: HEMATOCRIT 20.8 % (42.0-52.0); HEMOGLOBIN 7.2 g/dl (13.5-18.0)
[2018-03-28 03:47] LABS: CALCIUM 7.7 mg/dL (8.4-10.2); CREATININE, serum 1.09 mg/dL (0.66-1.25); MAGNESIUM 1.9 mg/dL (1.6-2.3)
[2018-03-28 10:24] LABS: HEMATOCRIT 22.1 % (42.0-52.0); HEMOGLOBIN 7.6 g/dl (13.5-18.0)
[2018-03-28 16:40] LABS: HEMATOCRIT 23.7 % (42.0-52.0); HEMOGLOBIN 8.1 g/dl (13.5-18.0)
[2018-03-28 22:38] LABS: HEMATOCRIT 21.1 % (42.0-52.0); HEMOGLOBIN 7.4 g/dl (13.5-18.0)
[2018-03-29] VITALS (9 sets, daily range): BP systolic 86–128; BP diastolic 58–81; PULSE 75–106; TEMP 97.4–98.8
[2018-03-29 04:32] LABS: BASO % 0.4 % (0.0-2.0); EOS # 0.1 (0.0-0.7); GRAN # 2.9 (1.4-6.5); GRAN % 58.5 % (42.2-75.2); LYMPH # 1.6 (1.2-3.4); LYMPH % 32.7 % (20.0-51.0); MEAN CORPUSCULAR HGB CONC 35 g/dl (33.0-37.0); MEAN PLATELET VOLUME 9.6 fl (7.4-10.4); MONO # 0.4 (0.1-0.6); MONO % 7.2 % (1.7-9.3); PLATELET COUNT 119 K/mm3 (130-400); RED BLOOD COUNT 2.34 M/mm3 (4.20-5.60); REDCELL DISTRIBUTION WIDTH-CV 17.5 % (11.5-14.5)
[2018-03-29 04:37] LABS: HEMATOCRIT 21.8 % (42.0-52.0); HEMOGLOBIN 7.6 g/dl (13.5-18.0); MEAN CELL VOLUME 93 fl (80.0-100.0); MEAN CORPUSCULAR HEMOGLOBIN 32 pg (27.0-31.0)
[2018-03-29 04:45] LABS: ALBUMIN 2.5 gm/dL (3.5-5.0); BILIRUBIN,TOTAL 0.4 mg/dL (0.0-1.0); CALCIUM 7.7 mg/dL (8.4-10.2); POTASSIUM 3.7 mmol/L (3.4-5.0); TOTAL PROTEIN 4.9 gm/dL (6.4-8.2)
[2018-03-29 10:35] LABS: HEMATOCRIT 22.6 % (42.0-52.0); HEMOGLOBIN 7.7 g/dl (13.5-18.0)
[2018-03-29 16:32] LABS: HEMATOCRIT 21.4 % (42.0-52.0); HEMOGLOBIN 7.4 g/dl (13.5-18.0)
[2018-03-29 22:01] LABS: HEMATOCRIT 21.1 % (42.0-52.0); HEMOGLOBIN 7.2 g/dl (13.5-18.0)
[2018-03-30] VITALS (14 sets, daily range): BP systolic 90–141; BP diastolic 54–90; PULSE 74–105; TEMP 18
[2018-03-30 04:24] LABS: BASO % 0.3 % (0.0-2.0); EOS # 0.1 (0.0-0.7); LYMPH # 2.3 (1.2-3.4); LYMPH % 39.6 % (20.0-51.0); MEAN CELL VOLUME 95 fl (80.0-100.0); MEAN CORPUSCULAR HGB CONC 34 g/dl (33.0-37.0); MEAN PLATELET VOLUME 10.3 fl (7.4-10.4); MONO # 0.4 (0.1-0.6); MONO % 6.8 % (1.7-9.3); PLATELET COUNT 127 K/mm3 (130-400); RED BLOOD COUNT 2.17 M/mm3 (4.20-5.60); REDCELL DISTRIBUTION WIDTH-CV 17.2 % (11.5-14.5)
[2018-03-30 04:33] LABS: CALCIUM 7.6 mg/dL (8.4-10.2); CREATININE, serum 1.07 mg/dL (0.66-1.25); POTASSIUM 3.5 mmol/L (3.4-5.0)
[2018-03-30 04:42] LABS: MAGNESIUM 0.8 mg/dL (1.6-2.3)
[2018-03-30 05:00] LABS: HEMATOCRIT 20.6 % (42.0-52.0); HEMOGLOBIN 6.9 g/dl (13.5-18.0); MEAN CORPUSCULAR HEMOGLOBIN 32 pg (27.0-31.0)
[2018-03-30] MEDS ORDERED: FERROUS GL325 MG/TAB PO (15:13)
[2018-03-30] MEDS ORDERED: NICODERM C21 MG/PATC TD (15:13)
[2018-03-30] MEDS ORDERED: PROTONIX 40MG T40 MG PO (15:14)
[2018-03-30] MEDS ORDERED: MAG-OX 400400 MG/TAB PO (15:14)
[2018-03-30] MEDS ORDERED: FOLIC ACID 11 MG/TA1 PO (15:14)
[2018-03-30] MEDS ORDERED: NATURE'S BLEND100 M2 PO (15:14)
[2018-03-30 15:40] LABS: HEMATOCRIT 24.9 % (42.0-52.0); HEMOGLOBIN 8.3 g/dl (13.5-18.0)
== END 2018-03-30 16:57 | disposition short-term general hospital (02) | DRG 378 ==
LOC: COL.ER 22:43 → ICU 03-27 01:43 → SURG 03-27 01:43 → ICU 03-27 01:44 → SURG 03-27 13:07
PROVIDERS: Emergency Medicine; Hospitalist; Internal Medicine; Internal Medicine Gastroenterology; Nurse Practitioner Family; Physician Assistant
PROC: 0HQ1XZZ Repair Face Skin, External Approach (ICD-10-PCS; 2018-03-26)
PROC: 0W3P8ZZ Control Bleeding in Gastrointestinal Tract, Via Natural or Artificial Opening Endoscopic (ICD-10-PCS; principal; 2018-03-28 10:30)
DX: K26.4 Chronic or unspecified duodenal ulcer with hemorrhage (principal); E87.1 Hypo-osmolality and hyponatremia; E87.2 Acidosis; E44.0 Moderate protein-calorie malnutrition; Z68.1 Body mass index [BMI] 19.9 or less, adult; D62 Acute posthemorrhagic anemia; F17.210 Nicotine dependence, cigarettes, uncomplicated; E83.42 Hypomagnesemia; S02.2XXA Fracture of nasal bones, initial encounter for closed fracture; W18.30XA Fall on same level, unspecified, initial encounter; F10.229 Alcohol dependence with intoxication, unspecified; Y90.7 Blood alcohol level of 200-239 mg/100 ml; S01.112A Laceration without foreign body of left eyelid and periocular area, initial encounter; I12.9 Hypertensive chronic kidney disease with stage 1 through stage 4 chronic kidney disease, or unspecified chronic kidney disease; N18.9 Chronic kidney disease, unspecified; I49.3 Ventricular premature depolarization
CPT/HCPCS: 99223-AI; 99231-AI; 99233-AI; 99239; C9113; J0171; J2060; J2405; J2704; J3411; J3475; J7030; P9016

== ENCOUNTER 2018-04-10 13:34 | Observation (INO) | payer MEDICARE, OTHER ==
[~2018-04-10] VITALS: Ht 167.6 cm; Wt 52.0 kg
[~2018-04-10 13:34] MED LIST changes: +FERROUS GL325 MG/TAB PO; +NATURE'S BLEND100 M2 PO; +PROTONIX 40MG T40 MG PO
[2018-04-10 14:24] LABS: COLLECTION METHOD CLEAN CATCH
[2018-04-10 14:30] LABS: BASO # 0.1 (0.0-0.2); BASO % 1.8 % (0.0-2.0); GRAN # 5.7 (1.4-6.5); GRAN % 72.9 % (42.2-75.2); HEMOGLOBIN 10.2 g/dl (13.5-18.0); LYMPH # 1.4 (1.2-3.4); LYMPH % 18.2 % (20.0-51.0); MEAN CELL VOLUME 96 fl (80.0-100.0); MEAN CORPUSCULAR HEMOGLOBIN 31 pg (27.0-31.0); MEAN CORPUSCULAR HGB CONC 32 g/dl (33.0-37.0); MEAN PLATELET VOLUME 8.6 fl (7.4-10.4); MONO # 0.5 (0.1-0.6); MONO % 6.8 % (1.7-9.3); PLATELET COUNT 594 K/mm3 (130-400); RED BLOOD COUNT 3.29 M/mm3 (4.20-5.60); REDCELL DISTRIBUTION WIDTH-CV 15.9 % (11.5-14.5)
[2018-04-10 14:37] LABS: HEMATOCRIT 31.6 % (42.0-52.0)
[2018-04-10 14:40] LABS: ALBUMIN 3.8 gm/dL (3.5-5.0); BILIRUBIN,TOTAL 0.3 mg/dL (0.0-1.0); CALCIUM 8.9 mg/dL (8.4-10.2); CREATININE, serum 1.24 mg/dL (0.66-1.25); POTASSIUM 4.6 mmol/L (3.4-5.0); TOTAL PROTEIN 6.8 gm/dL (6.4-8.2)
[2018-04-10 14:52] LABS: HYALINE CAST >12 /lpf; MUCOUS Present /lpf; PH 5 (5-8); SQUAMOUS EPITHELIAL 0-2 /hpf; URINE APPEARANCE Clear; URINE BACTERIA None Seen /hpf; URINE BILIRUBIN Negative (NEGATIVE); URINE BLOOD Negative (NEGATIVE); URINE COLOR Yellow; URINE GLUCOSE Negative (NEGATIVE); URINE KETONE Trace (NEGATIVE); URINE LEUKOCYTE ESTERASE Negative (NEGATIVE); URINE NITRATE Negative (NEGATIVE); URINE PROTEIN(semi-quant) Negative (NEGATIVE); URINE RBC 0-2 /hpf; URINE UROBILINOGEN Negative (NEGATIVE)
[2018-04-10 17:46] VITALS: BP 111/76; PULSE 99; TEMP 98.3
[2018-04-10 20:32] VITALS: BP 140/71; PULSE 90; TEMP 98.7
[2018-04-11 00:18] VITALS: BP 121/79; PULSE 87
[2018-04-11 04:00] VITALS: BP 127/76; PULSE 90; TEMP 99
[2018-04-11 06:55] VITALS: BP 139/80; PULSE 89; TEMP 98.3
[2018-04-11 07:05] LABS: CALCIUM 7.8 mg/dL (8.4-10.2); CREATININE, serum 1.18 mg/dL (0.66-1.25); MAGNESIUM 1.1 mg/dL (1.6-2.3); POTASSIUM 4.6 mmol/L (3.4-5.0)
[2018-04-11 11:15] VITALS: BP 118/71; PULSE 89; TEMP 98.4
[2018-04-11 15:49] VITALS: BP 112/80; PULSE 87; TEMP 98.9
[2018-04-11 17:47] LABS: BASO # 0.1 (0.0-0.2); EOS # 0.1 (0.0-0.7); EOS % 0.9 % (0-4.0); GRAN # 5.2 (1.4-6.5); GRAN % 65.3 % (42.2-75.2); HEMATOCRIT 23.7 % (42.0-52.0); HEMOGLOBIN 7.8 g/dl (13.5-18.0); LYMPH # 1.9 (1.2-3.4); LYMPH % 24.2 % (20.0-51.0); MEAN CELL VOLUME 97 fl (80.0-100.0); MEAN CORPUSCULAR HEMOGLOBIN 32 pg (27.0-31.0); MEAN CORPUSCULAR HGB CONC 33 g/dl (33.0-37.0); MEAN PLATELET VOLUME 9.2 fl (7.4-10.4); MONO # 0.7 (0.1-0.6); MONO % 8.3 % (1.7-9.3); PLATELET COUNT 339 K/mm3 (130-400); RED BLOOD COUNT 2.44 M/mm3 (4.20-5.60); REDCELL DISTRIBUTION WIDTH-CV 16.2 % (11.5-14.5)
[2018-04-11 20:03] VITALS: BP 120/80; PULSE 83; TEMP 98.6
[2018-04-12 00:23] VITALS: BP 118/75; PULSE 68; TEMP 98
[2018-04-12 04:12] VITALS: BP 123/79; PULSE 73; TEMP 98.1
[2018-04-12 06:25] LABS: BASO # 0.1 (0.0-0.2); BASO % 1.2 % (0.0-2.0); EOS # 0.1 (0.0-0.7); EOS % 1.7 % (0-4.0); GRAN # 3.5 (1.4-6.5); GRAN % 52.3 % (42.2-75.2); LYMPH # 2.3 (1.2-3.4); LYMPH % 35.3 % (20.0-51.0); MEAN CELL VOLUME 100 fl (80.0-100.0); MEAN CORPUSCULAR HGB CONC 32 g/dl (33.0-37.0); MEAN PLATELET VOLUME 9.5 fl (7.4-10.4); MONO # 0.6 (0.1-0.6); PLATELET COUNT 304 K/mm3 (130-400); RED BLOOD COUNT 2.37 M/mm3 (4.20-5.60); REDCELL DISTRIBUTION WIDTH-CV 16.4 % (11.5-14.5)
[2018-04-12 06:31] LABS: HEMATOCRIT 23.7 % (42.0-52.0); HEMOGLOBIN 7.5 g/dl (13.5-18.0); MEAN CORPUSCULAR HEMOGLOBIN 32 pg (27.0-31.0)
[2018-04-12 06:34] LABS: CALCIUM 7.6 mg/dL (8.4-10.2); CREATININE, serum 0.96 mg/dL (0.66-1.25); MAGNESIUM 1.6 mg/dL (1.6-2.3); POTASSIUM 4.1 mmol/L (3.4-5.0)
[2018-04-12 06:46] VITALS: BP 122/79; PULSE 71; TEMP 98.3
[2018-04-12 08:49] VITALS: BP 110/55; PULSE 81; TEMP 98.4
[2018-04-12 10:29] VITALS: BP 110/55; PULSE 81; TEMP 98.4
[2018-04-12 12:58] VITALS: BP 110/55; PULSE 81; TEMP 98.4
[2018-04-12] MEDS ORDERED: ATIVAN 0.50.5 MG/TAB PO (13:22)
== END 2018-04-12 14:42 ==
LOC: COL.ER 13:34 → MEDICAL 17:07
PROVIDERS: Internal Medicine; Nurse Practitioner; Physician Assistant
DX: E86.0 Dehydration (principal); R53.1 Weakness; E87.2 Acidosis; R74.0 Nonspecific elevation of levels of transaminase and lactic acid dehydrogenase [LDH]; E83.42 Hypomagnesemia; R82.4 Acetonuria; E88.89 Other specified metabolic disorders; T73.0XXA Starvation, initial encounter; I10 Essential (primary) hypertension; Z87.11 Personal history of peptic ulcer disease; F10.129 Alcohol abuse with intoxication, unspecified; Y90.8 Blood alcohol level of 240 mg/100 ml or more; F17.200 Nicotine dependence, unspecified, uncomplicated; Z88.2 Allergy status to sulfonamides; Z93.4 Other artificial openings of gastrointestinal tract status
CPT/HCPCS: 99232-AI; G0378; G8978-GP; G8979-GP; G8987-GO; G8988-GO; J2060; J2405; J3411; J3475; J7030

== ENCOUNTER → 2018-04-23 | Emergency (ER) | payer OTHER ==
[~2018-04-23] VITALS: Ht 167.6 cm; Wt 54.5 kg
[~2018-04-23] MED LIST changes: +ATIVAN 0.50.5 MG/TAB PO; +MULTI VITAMINS1 TAB PO; +MULTIPLE VITAMI1 TA5 PO
[2018-04-23 01:10] LABS: BASO # 0.1 (0.0-0.2); BASO % 1.1 % (0.0-2.0); EOS # 0.1 (0.0-0.7); EOS % 1.9 % (0-4.0); GRAN # 3.3 (1.4-6.5); GRAN % 52.9 % (42.2-75.2); HEMOGLOBIN 10.6 g/dl (13.5-18.0); LYMPH # 2.2 (1.2-3.4); LYMPH % 35.7 % (20.0-51.0); MEAN CELL VOLUME 94 fl (80.0-100.0); MEAN CORPUSCULAR HEMOGLOBIN 31 pg (27.0-31.0); MEAN CORPUSCULAR HGB CONC 33 g/dl (33.0-37.0); MONO # 0.5 (0.1-0.6); MONO % 8.1 % (1.7-9.3); PLATELET COUNT 345 K/mm3 (130-400); RED BLOOD COUNT 3.39 M/mm3 (4.20-5.60); REDCELL DISTRIBUTION WIDTH-CV 16.9 % (11.5-14.5)
[2018-04-23 01:24] LABS: ALANINE AMINOTRANSFERASE 28 U/L (21-72); ALBUMIN 4.3 gm/dL (3.5-5.0); ALCOHOL(ethanol),MEDICAL 297 mg/dL; ALKALINE PHOSPHATASE 87 U/L (50-136); ANION GAP 16 mmol/L (7-16); AST,SGOT 46 U/L (15-37); BILIRUBIN,TOTAL 0.4 mg/dL (0.0-1.0); BLOOD UREA NITROGEN 12 mg/dL (9-20); CALCIUM 9.5 mg/dL (8.4-10.2); CARBON DIOXIDE 22 mmol/L (22-30); CHLORIDE 105 mmol/L (98-107); CREATININE, serum 1.26 mg/dL (0.66-1.25); GLUCOSE 81 mg/dL (74-106); POTASSIUM 4.1 mmol/L (3.4-5.0); SODIUM 143 mmol/L (137-145); TOTAL PROTEIN 7.6 gm/dL (6.4-8.2)
[2018-04-23 01:25] LABS: ACETAMINOPHEN < 10 ug/mL (10-30); SALICYLATE < 1.0 mg/dL
[2018-04-23 05:07] VITALS: BP 101/72; PULSE 77
[2018-04-23 06:24] LABS: COLLECTION METHOD CLEAN CATCH
[2018-04-23 06:40] LABS: MUCOUS Present /lpf; PH 5 (5-8); SQUAMOUS EPITHELIAL None Seen /hpf; URINE APPEARANCE Hazy; URINE BACTERIA None Seen /hpf; URINE BILIRUBIN Negative (NEGATIVE); URINE BLOOD Negative (NEGATIVE); URINE COLOR Yellow; URINE GLUCOSE Negative (NEGATIVE); URINE KETONE Negative (NEGATIVE); URINE LEUKOCYTE ESTERASE Negative (NEGATIVE); URINE NITRATE Negative (NEGATIVE); URINE PROTEIN(semi-quant) Negative (NEGATIVE); URINE RBC 0-2 /hpf; URINE UROBILINOGEN Negative (NEGATIVE)
[2018-04-23 06:46] LABS: TRICYCLIC ANTIDEPRESS URINE NEGATIVE
== END ==
LOC: COL.ER 00:35
PROVIDERS: Physician Assistant
DX: F10.129 Alcohol abuse with intoxication, unspecified (principal); R45.850 Homicidal ideations; I10 Essential (primary) hypertension; F17.210 Nicotine dependence, cigarettes, uncomplicated; Z87.11 Personal history of peptic ulcer disease; Y90.8 Blood alcohol level of 240 mg/100 ml or more
CPT/HCPCS: J2060; J3411; J3475; J7030

== ENCOUNTER 2018-04-25 16:33 | Observation (INO) | payer OTHER, MEDICARE ==
[~2018-04-25] VITALS: Ht 170.2 cm; Wt 63.6 kg
[~2018-04-25 16:33] MED LIST changes: -MULTIPLE VITAMI1 TA5 PO
[2018-04-25 17:10] LABS: BASO # 0.1 (0.0-0.2); BASO % 1.4 % (0.0-2.0); EOS # 0.2 (0.0-0.7); EOS % 2.9 % (0-4.0); GRAN # 3.2 (1.4-6.5); GRAN % 48.8 % (42.2-75.2); LYMPH # 2.6 (1.2-3.4); LYMPH % 39.8 % (20.0-51.0); MEAN CELL VOLUME 96 fl (80.0-100.0); MEAN CORPUSCULAR HGB CONC 32 g/dl (33.0-37.0); MEAN PLATELET VOLUME 9.1 fl (7.4-10.4); MONO # 0.4 (0.1-0.6); MONO % 6.8 % (1.7-9.3); PLATELET COUNT 279 K/mm3 (130-400); RED BLOOD COUNT 2.99 M/mm3 (4.20-5.60); REDCELL DISTRIBUTION WIDTH-CV 17.2 % (11.5-14.5)
[2018-04-25 17:11] LABS: HEMATOCRIT 28.8 % (42.0-52.0); HEMOGLOBIN 9.3 g/dl (13.5-18.0); MEAN CORPUSCULAR HEMOGLOBIN 31 pg (27.0-31.0)
[2018-04-25 17:23] LABS: COLLECTION METHOD CLEAN CATCH
[2018-04-25 17:28] LABS: MUCOUS Present /lpf; PH 6 (5-8); SQUAMOUS EPITHELIAL None Seen /hpf; URINE APPEARANCE Clear; URINE BACTERIA None Seen /hpf; URINE BILIRUBIN Negative (NEGATIVE); URINE BLOOD Negative (NEGATIVE); URINE COLOR Straw; URINE GLUCOSE Negative (NEGATIVE); URINE KETONE Negative (NEGATIVE); URINE LEUKOCYTE ESTERASE Negative (NEGATIVE); URINE NITRATE Negative (NEGATIVE); URINE PROTEIN(semi-quant) Negative (NEGATIVE); URINE RBC None Seen /hpf; URINE UROBILINOGEN Negative (NEGATIVE)
[2018-04-25 17:28] LABS: ALANINE AMINOTRANSFERASE 25 U/L (21-72); ALBUMIN 3.8 gm/dL (3.5-5.0); ALCOHOL(ethanol),MEDICAL 291 mg/dL; ALKALINE PHOSPHATASE 80 U/L (50-136); ANION GAP 13 mmol/L (7-16); AST,SGOT 30 U/L (15-37); BILIRUBIN,TOTAL 0.4 mg/dL (0.0-1.0); BLOOD UREA NITROGEN 8 mg/dL (9-20); C-REACTIVE PROTEIN 0.8 mg/dL (0.0-0.9); CALCIUM 9.3 mg/dL (8.4-10.2); CARBON DIOXIDE 21 mmol/L (22-30); CHLORIDE 109 mmol/L (98-107); CREATININE, serum 1.08 mg/dL (0.66-1.25); GLUCOSE 77 mg/dL (74-106); LIPASE 69 U/L (23-300); MAGNESIUM 1.1 mg/dL (1.6-2.3); POTASSIUM 4.1 mmol/L (3.4-5.0); SODIUM 143 mmol/L (137-145); TOTAL PROTEIN 6.9 gm/dL (6.4-8.2)
[2018-04-25 17:33] LABS: ACETAMINOPHEN < 10 ug/mL (10-30); SALICYLATE < 1.0 mg/dL
[2018-04-25 17:36] LABS: TRICYCLIC ANTIDEPRESS URINE NEGATIVE
[2018-04-25 19:19] LABS: INR 0.9 (0.8-3.0); PROTHROMBIN TIME 10.3 SECONDS (9.7-12.8)
[2018-04-25 19:22] LABS: PARTIAL THROMBOPLASTIN TIME 31.2 SECONDS (26.0-37.0)
[2018-04-25 22:12] VITALS: BP 127/68; PULSE 89; TEMP 98.6
[2018-04-26] VITALS: BP 137/81; PULSE 86; TEMP 97.7
[2018-04-26 04:00] VITALS: BP 158/86; PULSE 85; TEMP 99.1
[2018-04-26 06:45] LABS: BASO # 0.1 (0.0-0.2); EOS # 0.1 (0.0-0.7); EOS % 1.9 % (0-4.0); GRAN # 4.7 (1.4-6.5); GRAN % 68.7 % (42.2-75.2); LYMPH # 1.5 (1.2-3.4); LYMPH % 22.2 % (20.0-51.0); MEAN CELL VOLUME 95 fl (80.0-100.0); MEAN CORPUSCULAR HGB CONC 33 g/dl (33.0-37.0); MEAN PLATELET VOLUME 9.5 fl (7.4-10.4); MONO # 0.4 (0.1-0.6); MONO % 5.9 % (1.7-9.3); PLATELET COUNT 231 K/mm3 (130-400); RED BLOOD COUNT 2.57 M/mm3 (4.20-5.60); REDCELL DISTRIBUTION WIDTH-CV 17.1 % (11.5-14.5)
[2018-04-26 06:50] LABS: HEMATOCRIT 24.4 % (42.0-52.0); MEAN CORPUSCULAR HEMOGLOBIN 31 pg (27.0-31.0)
[2018-04-26 06:54] LABS: ALANINE AMINOTRANSFERASE 27 U/L (21-72); ALBUMIN 3.2 gm/dL (3.5-5.0); ALKALINE PHOSPHATASE 73 U/L (50-136); ANION GAP 5 mmol/L (7-16); AST,SGOT 24 U/L (15-37); BILIRUBIN,TOTAL 0.4 mg/dL (0.0-1.0); BLOOD UREA NITROGEN 9 mg/dL (9-20); CALCIUM 8.4 mg/dL (8.4-10.2); CARBON DIOXIDE 25 mmol/L (22-30); CHLORIDE 104 mmol/L (98-107); CREATININE, serum 0.97 mg/dL (0.66-1.25); GLUCOSE 94 mg/dL (74-106); MAGNESIUM 1.7 mg/dL (1.6-2.3); POTASSIUM 4.2 mmol/L (3.4-5.0); SODIUM 133 mmol/L (137-145); TOTAL PROTEIN 5.9 gm/dL (6.4-8.2)
[2018-04-26 06:56] LABS: ALCOHOL(ethanol),MEDICAL < 10 mg/dL
[2018-04-26 07:26] VITALS: BP 145/95; PULSE 81; TEMP 98.7
[2018-04-26] MEDS ORDERED: PROTONIX 40MG T40 MG PO (09:38)
[2018-04-26] MEDS ORDERED: FOLIC ACID 11 MG/TA1 PO (09:38)
[2018-04-26] MEDS ORDERED: THIAMINE 1100 MG/TAB PO (09:38)
[2018-04-26] MEDS ORDERED: MULTIPLE VITAMI1 TA5 PO (09:39)
[2018-04-26] MEDS ORDERED: MAG-OX 400400 MG/TAB PO (09:40)
== END 2018-04-26 10:50 | disposition home or self-care (01) ==
LOC: COL.ER 16:33 → MEDICAL 18:22
PROVIDERS: Emergency Medicine; Nurse Practitioner Family
DX: F10.229 Alcohol dependence with intoxication, unspecified (principal); Y90.8 Blood alcohol level of 240 mg/100 ml or more; E83.42 Hypomagnesemia; E87.1 Hypo-osmolality and hyponatremia; R53.1 Weakness; R53.81 Other malaise; D50.0 Iron deficiency anemia secondary to blood loss (chronic); I10 Essential (primary) hypertension; E46 Unspecified protein-calorie malnutrition; F17.210 Nicotine dependence, cigarettes, uncomplicated; Z91.14 Patient's other noncompliance with medication regimen
CPT/HCPCS: C9113; G0378; J3411; J3475; J7030

== ENCOUNTER 2018-04-28 11:32 | Emergency (ER) | payer OTHER ==
[~2018-04-28] VITALS: Ht 167.6 cm; Wt 54.5 kg
[~2018-04-28 11:32] MED LIST changes: +MULTIPLE VITAMI1 TA5 PO
[2018-04-28 12:05] VITALS: BP 123/87; PULSE 85; TEMP 97.5
[2018-04-28 12:38] LABS: BASO # 0.1 (0.0-0.2); BASO % 1.2 % (0.0-2.0); EOS # 0.1 (0.0-0.7); GRAN # 2.6 (1.4-6.5); GRAN % 51.6 % (42.2-75.2); HEMATOCRIT 31.3 % (42.0-52.0); HEMOGLOBIN 10.1 g/dl (13.5-18.0); LYMPH % 41.2 % (20.0-51.0); MEAN CELL VOLUME 97 fl (80.0-100.0); MEAN CORPUSCULAR HEMOGLOBIN 31 pg (27.0-31.0); MEAN CORPUSCULAR HGB CONC 32 g/dl (33.0-37.0); MEAN PLATELET VOLUME 9.5 fl (7.4-10.4); MONO # 0.2 (0.1-0.6); MONO % 4.8 % (1.7-9.3); PLATELET COUNT 265 K/mm3 (130-400); RED BLOOD COUNT 3.24 M/mm3 (4.20-5.60); REDCELL DISTRIBUTION WIDTH-CV 17.7 % (11.5-14.5)
[2018-04-28 12:55] LABS: TRICYCLIC ANTIDEPRESS URINE NEGATIVE
[2018-04-28 12:56] LABS: ALANINE AMINOTRANSFERASE 31 U/L (21-72); ALBUMIN 4.1 gm/dL (3.5-5.0); ALCOHOL(ethanol),MEDICAL 247 mg/dL; ALKALINE PHOSPHATASE 89 U/L (50-136); ANION GAP 14 mmol/L (7-16); AST,SGOT 34 U/L (15-37); BILIRUBIN,TOTAL 0.3 mg/dL (0.0-1.0); BLOOD UREA NITROGEN 11 mg/dL (9-20); CARBON DIOXIDE 22 mmol/L (22-30); CHLORIDE 105 mmol/L (98-107); CREATININE, serum 1.15 mg/dL (0.66-1.25); GLUCOSE 62 mg/dL (74-106); LIPASE 41 U/L (23-300); POTASSIUM 4.1 mmol/L (3.4-5.0); SODIUM 141 mmol/L (137-145); TOTAL PROTEIN 7.3 gm/dL (6.4-8.2)
[2018-04-28 13:00] LABS: C-REACTIVE PROTEIN < 0.5 mg/dL (0.0-0.9)
== END 2018-04-28 15:19 | disposition home or self-care (01) ==
LOC: COL.ER 11:32
PROVIDERS: Emergency Medicine
DX: F10.129 Alcohol abuse with intoxication, unspecified (principal); R53.81 Other malaise; M10.9 Gout, unspecified; E16.2 Hypoglycemia, unspecified; I10 Essential (primary) hypertension; F17.210 Nicotine dependence, cigarettes, uncomplicated; Y90.8 Blood alcohol level of 240 mg/100 ml or more

== ENCOUNTER 2018-06-18 10:55 | Emergency (ER) | payer OTHER ==
[~2018-06-18] VITALS: Ht 167.6 cm; Wt 61.4 kg
[2018-06-18 11:04] VITALS: BP 103/82; PULSE 82; TEMP 97.2
== END 2018-06-18 11:43 | disposition left against medical advice (07) ==
LOC: COL.ER 10:55
DX: R69 Illness, unspecified (principal)